=== PATIENT | female | born 2000 | race African-American/Black ===

== ENCOUNTER 2020-07-18 14:30 | Emergency (ER) | payer OTHER ==
[~2020-07-18] VITALS: Ht 167.6 cm; Wt 56.7 kg
[2020-07-18 14:43] VITALS: BP 119/80
--- NOTE | 2020-07-18 14:43 | NUR ---
ED Nurse Note: Pt walked in to ED from home c/o non radiating chest pain onset yesterday, unk cause. Pt AAOx4, verbally responsive. No SOB, on room air. Afebrile. Pt placed on tank truck loader. ERMD at bedside.
--- NOTE | 2020-07-18 15:07 | NUR ---
ED Nurse Note: Iv line established. Blood and urine sent to lab.
--- NOTE | 2020-07-18 16:08 | Emergency Room Report ---
History of Present Illness General Chief Complaint: Chest Pain Source: Patient Present Illness HPI 20-year-old female with no significant past medical history other than anxiety here complaining of sudden onset of chest pain that started earlier today without any radiation. Reports that she has been to different emergency department in the past month for the same complaint been told that there are no acute causes and need to follow-up with pharmaceutical laboratory technician. Denies tobacco smoke, drug use, alcohol intake. Does not take anything for anxiety. Denies history of acid reflux. Denies . Denies all URI symptoms. Allergies: Coded Allergies: No Known Allergies (Unverified , 07/18/20) COVID-19 Screening Contact w/high risk pt: No Experienced COVID-19 symptoms?: No COVID-19 Testing performed DIRECTOR OF STRATEGIC PROGRAMS: No Patient History Past Medical History: see triage record Past Surgical History: none Pertinent Family History: none Now: No Immunizations: UTD Reviewed Nursing Documentation: PMH: Agreed; PSxH: Agreed Nursing Documentation-PMH Past Medical History: No Stated History Review of Systems All Other Systems: negative except mentioned in HPI Physical Exam Vital Signs Date Time Temp Pulse Resp B/P (MAP) Pulse Ox O2 Delivery O2 Flow Rate FiO2 07/18/20 14:38 98.4 82 16 119/80 (93) 99 Room Air Sp02 EP Interpretation: reviewed, normal General Appearance: no apparent distress, alert, GCS 15, non-toxic Head: normocephalic, atraumatic Eyes: bilateral eye normal inspection, bilateral eye PERRL ENT: hearing grossly normal, normal pharynx, no angioedema, normal voice Neck: full range of motion, supple/symm/no masses Respiratory: chest non-tender, lungs clear, normal breath sounds, no rhonchi, no respiratory distress, no retraction, speaking full sentences Cardiovascular #1: regular rate, rhythm, no edema, no murmur Cardiovascular #2: 2+ carotid (R), 2+ carotid (L), 2+ radial (R), 2+ radial (L), 2+ dorsalis pedis (R), 2+ dorsalis pedis (L) Gastrointestinal: normal bowel sounds, non tender, soft, non-distended, no guarding, no rebound Rectal: deferred Genitourinary: no CVA tenderness Musculoskeletal: back normal, no calf tenderness Neurologic: alert, motor strength/tone normal, oriented x3, sensory intact, responsive, speech normal Psychiatric: judgement/insight normal, memory normal, mood/affect normal, no suicidal/homicidal ideation Skin: no rash Lymphatic: normal inspection Medical Decision Making PA Attestation All my diagnosis and treatment plans were reviewed ad discussed with my supervising physician Dr. Senior Diagnostic Impression: Primary Impression: Chest pain ER Course 20-year-old female with no significant past medical history other than anxiety here complaining of sudden onset of chest pain that started earlier today without any radiation. Reports that she has been to different emergency department in the past month for the same complaint been told that there are no acute causes and need to follow-up with pharmaceutical laboratory technician. Denies tobacco smoke, drug use, alcohol intake. Does not take anything for anxiety. Denies history of acid reflux. Denies . Denies all URI symptoms. Ddx considered but are not limited to: GA, Angina, COPD, GERD,anxiety Vital signs: are WNL, pt. is afebrile H&PE are most consistent with: Chest pain ORDERS: Blood screen, UA, urine test, troponin, chest x-ray, EKG ED INTERVENTIONS: None required at this time. DISCHARGE: At this time pt. is stable for d/c to home. Will provide printed patient care instructions, and any necessary prescriptions. Care plan and follow up instructions have been discussed with the patient prior to discharge. Patient take medication as directed, follow-up with pharmaceutical laboratory technician, if worsening symptoms return to the emergency room EKG Diagnostic Results Rate: normal Rhythm: NSR ST Segments: no acute changes Other Impression No acute ST changes ASA given to the pt in ED: No Chest X-Ray Diagnostic Results Chest X-Ray Diagnostic Results : Chest X-Ray Ordered: Yes # of Views/Limited/Complete: 1 View Indication: Chest Pain EP Interpretation: Yes PA Xray: Interpretation reviewed, by supervising MD, and agrees with findings. Interpretation: no consolidation, no effusion, no pneumothorax, no acute cardiopulmonary disease Impression: No acute disease Electronically Signed by: Glen Gary PA-C Last Vital Signs Date Time Temp Pulse Resp B/P (MAP) Pulse Ox O2 Delivery O2 Flow Rate FiO2 07/18/20 14:43 82 16 Room Air 07/18/20 14:43 98.4 119/80 99 Disposition: HOME, SELF-CARE Condition: Stable Scripts Ibuprofen* (MOTRIN*) 600 Mg Tablet 600 MG ORAL Q6H PRN for FOR PAIN, #20 TAB 0 Refills Prov: Glen Robertson 07/18/20 Referrals: [facility],REFERR[facility] (PCP) Patient Instructions: Nonspecific Chest Pain Additional Instructions: Take medication as directed, follow-up with your primary care provider referral to pharmaceutical laboratory technician may be needed, if worsening symptoms return to the emergency room Glen Robertson Jul 18, 2020 16:08
[2020-07-18] MEDS ORDERED: IBUPROFEN600 M1 ORAL (16:09)
[2020-07-18 16:16] VITALS: BP 115/71
--- NOTE | 2020-07-18 16:16 | NUR ---
ED Nurse Note: Pt cleared by ERPA for discharge. DC instructions/prescription was given and explained to pt and verbalized understanding of teachings. All medical deviecs such as ID band and IV line removed. Pt is AAO x4, ambulatory and left with all personal belongings.
[2020-07-18 16:22] LABS: APPEARANCE,URINE SLIGHTLY CLOUDY; BILIRUBIN, URINE NEGATIVE (NEGATIVE); GLUCOSE, URINE (UA) NEGATIVE (NEGATIVE); KETONES,URINE 1+ (NEGATIVE); LEUKOCYTE ESTERASE ,URINE 1+ (NEGATIVE); NITRITE,URINE NEGATIVE (NEGATIVE); PH,URINE 7 (4.5-8.0); PROTEIN,URINE 1+ (NEGATIVE); UROBILINOGEN,URINE 1 MG/DL (0.0-1.0)
[2020-07-18 16:33] LABS: COLOR,URINE YELLOW
--- NOTE | 2020-07-18 17:35 | Diagnostic Imaging Report ---
Indication: Shortness of breath Technique: One view of the chest Comparison: none Findings: There is thoracic scoliotic deformity. The lungs and pleural spaces are clear. The heart size is normal. Impression: No acute process
== END 2020-07-18 16:16 | disposition home or self-care (01) ==
LOC: EMR 15:17
DX: R07.9 Chest pain, unspecified (principal); F41.9 Anxiety disorder, unspecified
CPT/HCPCS: 71045; 80307; 81003; 81025; 84484; 87086; Z7502; 99284